=== PATIENT | male | born 1975 | race Caucasian/White ===

== ENCOUNTER 2016-11-05 05:23 | Emergency (ER) | payer MEDICAID ==
[2016-11-05] MEDS ORDERED: ONDANSETRON 4 MG/2 ML VIAL IVP STA (05:26)
[2016-11-05] MEDS ORDERED: SODIUM CHLORIDE 0.9% 1,000 ML IV ONE (05:26)
[2016-11-05] MEDS ORDERED: KETOROLAC 60 MG/2 ML VIAL IVP STA (05:26)
[2016-11-05] MEDS ORDERED: KETOROLAC 15 MG/ML VIAL ONE (05:40)
[2016-11-05] MEDS ORDERED: SODIUM CHLORIDE FLUSH 0.9% 10 ML SYRINGE IVP ONE (05:40)
[2016-11-05] MEDS ORDERED: ONDANSETRON 4 MG/2 ML VIAL ONE (05:40)
--- NOTE | 2016-11-05 05:59 | ED Physician Documentation ---
PD HPI BACK PAIN - Stated complaint Stated Complaint: BACK PAIN - Chief complaint Chief Complaint: Abd Pain - History of Present Illness Timing - onset: How many hours ago (1), Yesterday Timing - details: Abrupt onset, Waxing and waning Location: Mid, Left Quality: Pain, Aching Associated symptoms: No: Fever, Weakness, Hematuria Contributing factors: No: Anticoagulated Similar symptoms before: Has not had sx before Recently seen: Not recently seen - Additional information Additional information: Patient is a 40 year old male with no significant past medical history who is presenting to the emergency department for left flank pain. patient states that it woke him up from sleep and it radiates down to his left groin. The pain has caused nausea and vomiting as well. Review of Systems Constitutional: denies: Fever, Chills Eyes: denies: Decreased vision, Photophobia Ears: denies: Ear pain, Drainage/discharge Nose: denies: Congestion Throat: denies: Dental pain / toothache, Sore throat Cardiac: denies: Chest pain / pressure Respiratory: denies: Dyspnea, Cough GI: reports: Nausea, Vomiting : denies: Dysuria, Frequency, Hematuria Skin: denies: Rash, Lesions Musculoskeletal: reports: Back pain. denies: Extremity pain Neurologic: denies: Generalized weakness, Focal weakness, Numbness Immunocompromised: denies: Immunocompromised PD PAST MEDICAL HISTORY - Past Medical History Past Medical History: No Cardiovascular: None Respiratory: None Neuro: None Endocrine/Autoimmune: None GI: None : None HEENT: None Psych: None Musculoskeletal: None Derm: None - Past Surgical History Past Surgical History: No - Present Medications Home Medications: Ambulatory Orders Medication Instructions Recorded Confirmed Diclofenac Sodium 50 mg PO TID #20 tablet. 11/05/16 Ondansetron Odt [Zofran] 4 mg TL Q6H PRN #14 tablet 11/05/16 Tamsulosin HCl [Flomax] 0.4 mg PO DAILY #10 cap.er.24h 11/05/16 - Allergies Allergies/Adverse Reactions: Allergies Allergy/AdvReac Type Severity Reaction Status Date / Time No Known Drug Allergies Allergy Verified 11/05/16 05:35 - Social History Does the pt smoke?: No Smoking Status: Never smoker Does the pt drink ETOH?: No Does the pt have substance abuse?: No - Immunizations Immunizations are current?: Yes - POLST Patient has POLST: No PD ED PE NORMAL - Vitals Vital signs reviewed: Yes - General General: Alert and oriented X 3 - HEENT HEENT: Atraumatic, PERRL - Neck Neck: Supple, no meningeal sign - Cardiac Cardiac: RRR, No murmur - Respiratory Respiratory: No respiratory distress - Abdomen Abdomen: Non tender, Non distended - Derm Derm: Normal color, Warm and dry, No rash - Extremities Extremities: No deformity, No tenderness to palpate, No edema, No calf tenderness / cord - Neuro Neuro: Alert and oriented X 3, No motor deficit, No sensory deficit, Normal speech - Psych Psych: Normal mood PD ED PE EXPANDED - General General: Alert, In Pain - HEENT HEENT: Dry mucous membranes - Back Back: CVA TTP left Results - Vitals Vitals: Vital Signs - 24 hr 11/05/16 11/05/16 11/05/16 05:27 05:47 06:49 Temperature 36.1 C L 36.5 C Heart Rate 80 76 Respiratory 24 20 15 Rate Blood Pressure 139/93 H 121/74 O2 Saturation 99 99 Oxygen O2 Source Room air - Labs Labs: Laboratory Tests 11/05/16 06:40 Urine Color YELLOW Urine Clarity CLEAR Urine pH 6.0 Ur Specific [place] 1.020 Urine Protein NEGATIVE Urine Glucose (UA) NEGATIVE Urine Ketones TRACE Urine Occult Blood LARGE H Urine Nitrite NEGATIVE Urine Bilirubin NEGATIVE Urine Urobilinogen 0.2 (NORMAL) Ur Leukocyte Esterase NEGATIVE Urine RBC TNTC H Urine WBC 0-3 Ur Squamous Epith Cells NONE SEEN Urine Bacteria None Seen Urine Mucus Few Strands Ur Microscopic Review INDICATED Urine Culture Comments NOT INDICATED PD MEDICAL DECISION MAKING - ED course Complexity details: reviewed old records, reviewed results, re-evaluated patient , considered differential, d/w patient, d/w family ED course: Patient was seen and examined at bedside. IV access was gained and patient was treated with toradol, zofran and IV fluids. Patient's pain improved from a 10 to a 5 which is patient's baseline. Urine was collected and imaging was ordered. When patient returned from imaging results were reviewed. there was no sign of hydro or infection and the stone was under 5mm. Patient required no further work up at this time and was stable for discharge with outpatient follow up. Departure - Departure Disposition: 01 Home, Self Care Clinical Impression: Nephrolithiasis Condition: Good Instructions: ED Stone Renal W Colic Follow-Up: [facility] [Provider Group] - Within 3 Days Prescriptions: Diclofenac Sodium 50 mg PO TID #20 tablet. Ondansetron Odt [Zofran] 4 mg TL Q6H PRN #14 tablet PRN Reason: Nausea / Vomiting Tamsulosin HCl [Flomax] 0.4 mg PO DAILY #10 cap.er.24h Comments: Your symptoms today are being caused by a kidney stone. It is less than 5 mm and should pass on its own. You should stay well hydrated and take the flomax daily. You can take the diclofanac, ibuprofen or tylenol for pain. If you develop fevers, chills or worsening symptoms you may return to the emergency department for further evaluation and care.
[2016-11-05 06:49] VITALS: BP 121/74
[2016-11-05 06:50] LABS: BILIRUBIN,URINE NEGATIVE (NEGATIVE)
[2016-11-05 06:54] LABS: UA w/ MICROSCOPIC CHARGE YES
--- NOTE | 2016-11-05 06:54 | CT Preliminary Report ---
Exam: CT Abdomen/Pelvis W/O IMPRESSION: 1. There is a 4.5 mm left proximal ureteral stone, just distal to the UPJ. No evident hydronephrosis as a result. 2. No intrarenal stones on the left. There are 2 right mid and upper kidney punctate intrarenal stone s. No right-sided hydronephrosis. 3. No bowel obstruction. Appendix could not be identified with certainty. No secondary evidence of ap pendicitis. [facility] SITE ID: [id number]
[2016-11-05 06:56] LABS: UR CULTURE IF IND NOT INDICATED; WBC,URINE 0-3 /HPF (0-3)
--- NOTE | 2016-11-05 06:57 | CT Report ---
EXAM: CT ABDOMEN AND PELVIS (CT KUB) EXAM DATE: 11/05/2016 06:32 AM. CLINICAL HISTORY: Left flank pain COMPARISONS: None. TECHNIQUE: Routine axial helical CT imaging was performed through the abdomen and pelvis without IV c ontrast. Reconstructions: Coronal and sagittal. In accordance with CT protocol optimization, one or more of the following dose reduction techniques w ere utilized for this exam: automated exposure control, adjustment of mA and/or KV based on patient s ize, or use of iterative reconstructive technique. FINDINGS: Right Kidney/Ureter: There are 2 punctate stones within the right mid and upper kidney. No hydronephr osis or hydroureter. No definite renal mass within the confines of a non-contrast exam. Left Kidney/Ureter: No hydronephrosis. No intrarenal stones. There is a 4.5 mm stone within the left proximal ureter, at the UPJ. No definite renal mass within the confines of a non-contrast exam. Abdominal Solid Organs: Abdominal parenchymal organs are without significant abnormality within the c onfines of a noncontrast exam. Bowel: No evidence of bowel obstruction. Appendix: Appendix could not be identified with certainty. No secondary evidence of appendicitis. Lymph Nodes: No definite pathologic lymphadenopathy. Fluid: No significant ascites. Vasculature: Normal caliber aorta. Pelvis: No bladder stones. Visualized pelvic organs are without significant abnormality within the co nfines of a noncontrast exam. Bones: No definite suspicious bony lesions demonstrated. Lower Chest: No significant lung base consolidation or effusion. IMPRESSION: 1. There is a 4.5 mm left proximal ureteral stone, just distal to the UPJ. No evident hydronephrosis as a result. 2. No intrarenal stones on the left. There are 2 right mid and upper kidney punctate intrarenal stone s. No right-sided hydronephrosis. 3. No bowel obstruction. Appendix could not be identified with certainty. No secondary evidence of ap pendicitis. [facility] Referring Provider Line: [phone] SITE ID: [id number]
[2016-11-05] MEDS ORDERED: ACETAMINOPHEN 500 MG TABLET PO STA (07:11)
[2016-11-05] MEDS ORDERED: ACETAMINOPHEN 500 MG TABLET PO ONE (07:18)
== END 2016-11-05 07:20 | disposition home or self-care (01) ==
LOC: ED 05:23
DX: N20.0 Calculus of kidney (principal)
CPT/HCPCS: 74176; 81001; 96361; 96374; 96375; 99283; 99284; A9270; 81003; 87086

== ENCOUNTER 2016-12-06 08:28 | Emergency (ER) | payer SELFPAY ==
[2016-12-06] MEDS ORDERED: KETOROLAC 30 MG/ML VIAL ONE (08:56)
[2016-12-06] MEDS ORDERED: ONDANSETRON 4 MG/2 ML VIAL ONE (08:56)
[2016-12-06] MEDS ORDERED: KETOROLAC 30 MG/ML VIAL IVP STA (09:01)
[2016-12-06] MEDS ORDERED: ONDANSETRON 4 MG/2 ML VIAL IVP STA (09:03)
[2016-12-06] MEDS ORDERED: SODIUM CHLORIDE 0.9% 1,000 ML IV ONE (09:04)
[2016-12-06 09:12] LABS: BASOPHILS % (AUTO) 0.8 %; EOSINOPHILS # (AUTO) 0.1 10^3/uL (0.0-0.7); EOSINOPHILS % (AUTO) 1.4 %; HCT - HEMATOCRIT 45.1 % (42.0-52.0); HGB - HEMOGLOBIN 15.6 g/dL (14.0-18.0); LYMPHOCYTES # (AUTO) 1.7 10^3/uL (1.5-3.5); LYMPHOCYTES % (AUTO) 31.5 %; MEAN CORPUSCULAR HEMOGLOBIN 30.9 pg (27.0-31.0); MEAN CORPUSCULAR HGB CONC 34.6 g/dL (32.0-36.0); MEAN CORPUSCULAR VOLUME 89.2 fL (80.0-94.0); MEAN PLATELET VOLUME 8.2 fL (7.4-11.4); MONOCYTES # (AUTO) 0.4 10^3/uL (0.0-1.0); MONOCYTES % (AUTO) 7.5 %; NEUTROPHILS # (AUTO) 3.1 10^3/uL (1.5-6.6); NEUTROPHILS % (AUTO) 58.8 %; RED BLOOD COUNT 5.06 10^6/uL (4.70-6.10); RED CELL DISTRIBUTION WIDTH 12.3 % (12.0-15.0); UNCORRECTED WHITE BLOOD COUNT 5.3 x10^3/uL; WHITE BLOOD COUNT 5.3 x10^3/uL (4.8-10.8)
[2016-12-06 09:22] LABS: ALBUMIN/GLOBULIN RATIO 1.7 (1.0-2.2); BILIRUBIN,TOTAL 1.2 mg/dL (0.2-1.0); CALCIUM 9.9 mg/dL (8.5-10.3); CREATININE 1.1 mg/dL (0.6-1.2); POTASSIUM 4.2 mmol/L (3.5-5.0); TOTAL PROTEIN 7.8 g/dL (6.7-8.2)
--- NOTE | 2016-12-06 10:06 | XRAY Preliminary Report ---
Exam: XR ABDOMEN 1 VIEW IMPRESSION: Normal 1-view abdomen x-ray. [facility] SITE ID: [id number]
--- NOTE | 2016-12-06 10:09 | XRAY Report ---
EXAM: ABDOMEN RADIOGRAPHY EXAM DATE: 12/06/2016 09:54 AM. CLINICAL HISTORY: Rt. flank pain; rt-sided stone dxd recently. COMPARISON: CT KUB 11/05/2016. TECHNIQUE: 1 view. FINDINGS: Bowel Gas Pattern: Within normal limits. No dilated loops. Other: No urinary tract calculi apparent by plain radiography. IMPRESSION: Normal 1-view abdomen x-ray. [facility] Referring Provider Line: [phone] SITE ID: [id number]
--- NOTE | 2016-12-06 10:11 | ED Physician Documentation ---
PD HPI ABD PAIN - Stated complaint Stated Complaint: SIDE PX - Chief complaint Chief Complaint: Abd Pain - History obtained from History obtained from: Patient - History of Present Illness Timing - onset: How many minutes ago (30) Timing - details: Abrupt onset Quality: Pain Location: Other (Right flank.) Associated symptoms: Nausea, Vomiting. No: Fever Similar symptoms before: Diagnosis (History of kidney stones, most recently diagnosed with left ureteral stone one month ago.) - Additional information Additional information: The patient is a 40-year-old male with history of kidney stones, who presents with sudden onset of right flank pain that started one half hour prior to arrival. He reports associated nausea and vomiting. He denies fever or dysuria. He was seen here one month ago with left flank pain, and was diagnosed with a 4.5 mm left ureteral stone at that time based on CT findings. He was noted to have 2 nonobstructing stones in the right renal pelvis at that time. Review of Systems Constitutional: denies: Fever Nose: denies: Congestion Cardiac: denies: Chest pain / pressure Respiratory: denies: Dyspnea, Cough GI: reports: Nausea, Vomiting : denies: Dysuria, Hematuria Skin: denies: Rash Musculoskeletal: reports: Back pain (right flank) Neurologic: denies: Headache PD PAST MEDICAL HISTORY - Past Medical History Past Medical History: Yes Cardiovascular: None Respiratory: None Neuro: None, Other Endocrine/Autoimmune: None GI: None : None, Kidney stones HEENT: None Psych: None Musculoskeletal: Chronic back pain Derm: None - Past Surgical History Past Surgical History: No - Present Medications Home Medications: Ambulatory Orders Medication Instructions Recorded Confirmed Tamsulosin HCl [Flomax] 0.4 mg PO DAILY #10 cap.er.24h 11/05/16 12/06/16 Tamsulosin [Flomax] 0.4 mg PO DAILY #10 capsule 12/06/16 - Allergies Allergies/Adverse Reactions: Allergies Allergy/AdvReac Type Severity Reaction Status Date / Time No Known Drug Allergies Allergy Verified 12/06/16 11:42 - Social History Does the pt smoke?: No Smoking Status: Never smoker Does the pt drink ETOH?: No Does the pt have substance abuse?: No - Immunizations Immunizations are current?: Yes - POLST Patient has POLST: No PD ED PE NORMAL - Vitals Vital signs reviewed: Yes (normal) - General General: Alert and oriented X 3, Well developed/nourished - HEENT HEENT: Atraumatic, Moist mucous membranes - Neck Neck: Supple, no meningeal sign, No adenopathy - Cardiac Cardiac: RRR, No murmur - Respiratory Respiratory: No respiratory distress, Clear bilaterally - Abdomen Abdomen: Soft, No organomegaly, Other (Right sided tenderness, without rebound or guarding.) - Back Back: Other (Exquisite right CVA tenderness.) - Derm Derm: No rash - Extremities Extremities: No edema, No calf tenderness / cord - Neuro Neuro: Alert and oriented X 3, No motor deficit, Normal speech Results - Vitals Vitals: Oxygen O2 Source Room air - Labs Labs: Microbiology 12/06/16 09:55 Urine Culture - Final Urine,Clean Catch No growth Laboratory Tests 12/06/16 12/06/16 12/06/16 08:45 08:45 09:55 WBC 5.3 RBC 5.06 Hgb 15.6 Hct 45.1 MCV 89.2 MCH 30.9 MCHC 34.6 RDW 12.3 Plt Count 278 MPV 8.2 Neut # 3.1 Lymph # 1.7 Cooper # 0.4 Eos # 0.1 Baso # 0.0 Absolute Nucleated RBC 0.00 Nucleated RBC % 0.0 Sodium 138 Potassium 4.2 Chloride 103 Carbon Dioxide 25 Anion Gap 10.0 BUN 14 Creatinine 1.1 Estimated GFR (MDRD) 75 L Glucose 115 H Calcium 9.9 Total Bilirubin 1.2 H AST 18 ALT 16 Alkaline Phosphatase 45 Total Protein 7.8 Albumin 4.9 Globulin 2.9 Albumin/Globulin Ratio 1.7 Lipase 25 Urine Color YELLOW Urine Clarity HAZY Urine pH 7.0 Ur Specific [place] 1.020 Urine Protein TRACE Urine Glucose (UA) NEGATIVE Urine Ketones NEGATIVE Urine Occult Blood LARGE H Urine Nitrite NEGATIVE Urine Bilirubin NEGATIVE Urine Urobilinogen 0.2 (NORMAL) Ur Leukocyte Esterase NEGATIVE Urine RBC 11-25 H Urine WBC 0-3 Ur Squamous Epith Cells NONE SEEN Urine Bacteria Moderate H Ur Microscopic Review INDICATED Urine Culture Comments INDICATED - Rads (name of study) KUB Radiology: Prelim report reviewed, EMP read contemporaneously, See rad report ( Normal 1 view abdomen.) PD MEDICAL DECISION MAKING - ED course Complexity details: reviewed old records, reviewed results, re-evaluated patient , considered differential, d/w patient, d/w family ED course: The patient's presentation is most consistent with right renal colic, consistent with ureteral stone. Urinalysis reveals microscopic hematuria. A 1 view abdominal x-ray was nonrevealing. This study was performed, rather than CT scan, because of the patient's recent radiation from CT scan one month ago. His presentation does not suggest pyelonephritis. Treatment in the emergency department included administration of normal saline 1 L IV, ketorolac 30 mg IV, and ondansetron 4 mg IV. The patient declined narcotic medication. His symptoms did improve with the above treatment. He is being discharged with prescription for Flomax. I discussed with him and his the expected course of illness, symptomatic treatment and outpatient follow -up, as well as potentially worrisome signs or symptoms that should prompt reevaluation in the emergency department. Departure - Departure Disposition: 01 Home, Self Care Clinical Impression: Renal colic on right side Condition: Stable Instructions: ED Stone Renal W Colic Follow-Up: Mabel Dodge DO [Primary Care Provider] - Prescriptions: Tamsulosin [Flomax] 0.4 mg PO DAILY #10 capsule Comments: Drink plenty of fluids. Take ibuprofen, up to 800 mg 3 times daily. Take Flomax daily as prescribed. Follow up with your primary physician within 1 week. Call to schedule appointment. Return to the emergency department if you develop increasing pain, persistent vomiting, fever, or otherwise worsening symptoms. Discharge Date/Time: 12/06/16 11:25
[2016-12-06 10:15] LABS: BILIRUBIN,URINE NEGATIVE (NEGATIVE)
[2016-12-06 10:19] LABS: UA w/ MICROSCOPIC CHARGE YES
[2016-12-06 10:29] LABS: WBC,URINE 0-3 /HPF (0-3)
[2016-12-06 10:30] LABS: UR CULTURE IF IND INDICATED
[2016-12-06 11:47] VITALS: BP 110/71
== END 2016-12-06 11:25 | disposition home or self-care (01) ==
LOC: ED 08:28
DX: N23 Unspecified renal colic (principal); Z87.442 Personal history of urinary calculi; R31.29 Other microscopic hematuria
CPT/HCPCS: 36415; 74000; 80053; 81001; 81003; 83690; 85025; 87086; 96361; 96374; 96375; 99284

== ENCOUNTER 2016-12-18 09:23 | Emergency (ER) | payer SELFPAY ==
[2016-12-18] MEDS ORDERED: KETOROLAC 60 MG/2 ML VIAL IVP STA (09:48)
[2016-12-18] MEDS ORDERED: ONDANSETRON 4 MG/2 ML VIAL IVP STA (09:48)
[2016-12-18] MEDS ORDERED: ACETAMINOPHEN 1,000 MG/100 ML 100 ML IV STA (09:48)
--- NOTE | 2016-12-18 09:49 | ED Physician Documentation ---
PD HPI ABD PAIN - Stated complaint Stated Complaint: LT BACK PX - Chief complaint Chief Complaint: Abd Pain - History obtained from History obtained from: Patient - History of Present Illness Timing - onset: Today Timing - duration: Hours (1-2) Timing - details: Abrupt onset, Still present Quality: Aching, Pain Location: LLQ Radiation: Left flank Improved by: No: Laying still, Position Worsened by: No: Moving, Position, Palpation Associated symptoms: Nausea. No: Diarrhea, Constipation, Dysuria, Hematuria Similar symptoms before: Diagnosis (kidney stone end of october, same side.) Review of Systems Constitutional: denies: Fever, Chills Cardiac: denies: Chest pain / pressure Respiratory: denies: Dyspnea, Cough GI: denies: Vomiting, Constipation, Diarrhea : denies: Dysuria, Frequency, Hematuria PD PAST MEDICAL HISTORY - Past Medical History Past Medical History: Yes Cardiovascular: None Respiratory: None Neuro: None, Other Endocrine/Autoimmune: None GI: None : Kidney stones HEENT: None Psych: None Musculoskeletal: Chronic back pain Derm: None - Past Surgical History Past Surgical History: No - Present Medications Home Medications: Ambulatory Orders Medication Instructions Recorded Confirmed Tamsulosin [Flomax] 0.4 mg PO DAILY #10 capsule 12/06/16 12/18/16 Cbd Oil ORAL DAILY 12/18/16 Naproxen [Naprosyn] 500 mg PO BID PRN #20 tablet 12/18/16 Ondansetron Odt [Zofran] 4 mg TL Q6H PRN #15 tablet 12/18/16 - Allergies Allergies/Adverse Reactions: Allergies Allergy/AdvReac Type Severity Reaction Status Date / Time No Known Drug Allergies Allergy Verified 12/18/16 09:40 - Social History Does the pt smoke?: No Smoking Status: Never smoker Does the pt drink ETOH?: No Does the pt have substance abuse?: No - Immunizations Immunizations are current?: Yes - POLST Patient has POLST: No PD ED PE NORMAL - Vitals Vital signs reviewed: Yes - General General: Alert and oriented X 3, Well developed/nourished, Other (marked pain and writhing. ) - Cardiac Cardiac: RRR, No murmur - Respiratory Respiratory: Clear bilaterally - Abdomen Abdomen: Soft, Non tender - Back Back: No spinal TTP, Other (left CVA tender) - Derm Derm: Normal color, Warm and dry - Extremities Extremities: No tenderness to palpate - Neuro Neuro: Alert and oriented X 3, No motor deficit, Normal speech - Psych Psych: Normal mood, Normal affect Results - Vitals Vitals: Oxygen O2 Source Room air - Labs Labs: Laboratory Tests 12/18/16 12/18/16 12/18/16 09:44 09:44 10:58 WBC 8.9 RBC 5.00 Hgb 15.4 Hct 44.6 MCV 89.3 MCH 30.9 MCHC 34.6 RDW 12.2 Plt Count 297 MPV 7.8 Neut # 6.5 Lymph # 1.9 [place] # 0.5 Eos # 0.1 Baso # 0.1 Absolute Nucleated RBC 0.00 Nucleated RBC % 0.1 Sodium 136 Potassium 3.5 Chloride 103 Carbon Dioxide 22 Anion Gap 11.0 BUN 16 Creatinine 1.0 Estimated GFR (MDRD) 83 L Glucose 95 Calcium 9.7 Total Bilirubin 1.7 H AST 21 ALT 21 Alkaline Phosphatase 49 Total Protein 7.7 Albumin 4.8 Globulin 2.9 Albumin/Globulin Ratio 1.7 Lipase 20 L Urine Color YELLOW Urine Clarity CLEAR Urine pH 7.0 Ur Specific [place] <=1.005 Urine Protein NEGATIVE Urine Glucose (UA) NEGATIVE Urine Ketones NEGATIVE Urine Occult Blood LARGE H Urine Nitrite NEGATIVE Urine Bilirubin NEGATIVE Urine Urobilinogen 0.2 (NORMAL) Ur Leukocyte Esterase NEGATIVE Urine RBC 0-5 Urine WBC 0-3 Ur Squamous Epith Cells NONE SEEN Urine Bacteria None Seen Ur Microscopic Review INDICATED Urine Culture Comments NOT INDICATED - Rads (name of study) KUB CT Radiology: Prelim report reviewed (4 mm stone left ureter, just short distance further than it was ) PD MEDICAL DECISION MAKING - ED course Complexity details: re-evaluated patient (improved pain. He adamantly does not want narcotics. Better with nonnarcotic meds. ), considered differential ( sympotoms c/w renal colic. Had similar end of Oct, and has had mild intermittent pains. Consider is still same stone, and got CT showing same stone migrated just a little bit. Will refer to Urology for possible intervention. ), d/w patient Departure - Departure Disposition: 01 Home, Self Care Clinical Impression: Nephrolithiasis, Renal colic Condition: Stable Record reviewed to determine appropriate education?: Yes Instructions: ED Stone Renal W Colic Follow-Up: Mabel Dodge DO [Primary Care Provider] - [facility] [Provider Group] Prescriptions: Naproxen [Naprosyn] 500 mg PO BID PRN #20 tablet PRN Reason: Pain Ondansetron Odt [Zofran] 4 mg TL Q6H PRN #15 tablet PRN Reason: Nausea / Vomiting Comments: The stone has only moved a little bit over the month and a half. I would suggest following up with [facility] in [place] regarding possible and interventional procedures to remove it. Use naproxen or ibuprofen twice daily regularly. Add Zofran if needed for nausea. Add Tylenol if needed for pains. Return if worsening pain again. Discharge Date/Time: 12/18/16 11:33
[2016-12-18] MEDS ORDERED: KETOROLAC 60 MG/2 ML VIAL ONE (09:53)
[2016-12-18] MEDS ORDERED: ONDANSETRON 4 MG/2 ML VIAL ONE (09:53)
[2016-12-18 09:54] LABS: BASOPHILS # (AUTO) 0.1 10^3/uL (0.0-0.1); BASOPHILS % (AUTO) 0.7 %; EOSINOPHILS # (AUTO) 0.1 10^3/uL (0.0-0.7); EOSINOPHILS % (AUTO) 0.8 %; HCT - HEMATOCRIT 44.6 % (42.0-52.0); HGB - HEMOGLOBIN 15.4 g/dL (14.0-18.0); LYMPHOCYTES # (AUTO) 1.9 10^3/uL (1.5-3.5); LYMPHOCYTES % (AUTO) 20.9 %; MEAN CORPUSCULAR HEMOGLOBIN 30.9 pg (27.0-31.0); MEAN CORPUSCULAR HGB CONC 34.6 g/dL (32.0-36.0); MEAN CORPUSCULAR VOLUME 89.3 fL (80.0-94.0); MEAN PLATELET VOLUME 7.8 fL (7.4-11.4); MONOCYTES # (AUTO) 0.5 10^3/uL (0.0-1.0); MONOCYTES % (AUTO) 5.1 %; NEUTROPHILS # (AUTO) 6.5 10^3/uL (1.5-6.6); NEUTROPHILS % (AUTO) 72.5 %; NUCLEATED RED BLOOD CELLS AUTO 0.1 /100WBC; RED CELL DISTRIBUTION WIDTH 12.2 % (12.0-15.0); UNCORRECTED WHITE BLOOD COUNT 8.9 x10^3/uL; WHITE BLOOD COUNT 8.9 x10^3/uL (4.8-10.8)
[2016-12-18] MEDS ORDERED: ACETAMINOPHEN 1,000 MG/100 ML 100 ML IV ONE (09:57)
[2016-12-18 10:07] LABS: ALBUMIN/GLOBULIN RATIO 1.7 (1.0-2.2); BILIRUBIN,TOTAL 1.7 mg/dL (0.2-1.0); CALCIUM 9.7 mg/dL (8.5-10.3); POTASSIUM 3.5 mmol/L (3.5-5.0); TOTAL PROTEIN 7.7 g/dL (6.7-8.2)
--- NOTE | 2016-12-18 10:49 | CT Report ---
EXAM: CT ABDOMEN AND PELVIS (CT KUB) EXAM DATE: 12/18/2016 10:33 AM. CLINICAL HISTORY: Left flank/abd pain today. COMPARISONS: CT abdomen and pelvis 11/05/2016. TECHNIQUE: Routine axial helical CT imaging was performed through the abdomen and pelvis without IV c ontrast. Reconstructions: Coronal and sagittal. In accordance with CT protocol optimization, one or more of the following dose reduction techniques w ere utilized for this exam: automated exposure control, adjustment of mA and/or KV based on patient s ize, or use of iterative reconstructive technique. FINDINGS: Lung Bases: Solid pulmonary nodule in the lateral segment right middle lobe measures 4 mm. Solid pulm onary nodule in the anterior basilar segment right lower lobe measures 4 mm, unchanged. Right Kidney/Ureter: No stones, hydronephrosis, or hydroureter. No perinephric fat stranding. Left Kidney/Ureter: Nonobstructing ureterolithiasis in the proximal left ureter, series 3, axial imag e 43, measures 4 x 3 x 5 mm, located approximately 18-19 cm above the ureterovesicular junction, appr oximately 2-3 mm lower in the ureter than previous study with asymmetric proximal periureteral edema and slight thickening of the ureteral wall. Other Solid Organs: Incidental splenule. Gallbladder/Bile Ducts: Unremarkable. Peritoneal Cavity: No free fluid, free air or adi adenopathy. Bowel is grossly unremarkable. Pelvic Organs: No bladder stones or wall thickening. Noncontrast images of the visualized pelvic orga ns are unremarkable. Vasculature: Unremarkable. Other: Motion artifact. IMPRESSION: 1. Nonobstructing ureterolithiasis in the proximal left ureter is slightly lower than previous study however remains well above the ureterovesicular junction with associated inflammation around the prox imal ureter 2. Small pulmonary nodules at the lung bases. Recommend follow-up of the described nodule(s) according to the following guidelines: Fleischner Society Recommendations 2017 MacMahon et al. Radiology 2017 Solid Nodules-Low Risk Patients: <6 mm (single or multiple) - No routine follow-up* 6-8 mm (single) -CT 6-12 at months, then consider CT at 18-24 months 6-8mm (multiple) -CT 3-6 at mo, then consider at CT 18-24 months >8 mm (single) -Consider CT, PET/CT, or tissue sampling at 3 months >8 mm (multiple) -CT 3-6 at mo, then consider CT at 18-24 months Solid Nodules-High Risk Patients: <6 mm (single or multiple) -Optional CT at 12 months* 6-8 mm (single) -CT at 6-12 months, then CT at 18-24 months 6-8mm (multiple) -CT at 3-6 months, then CT at 18-24 months >8 mm (single) -Consider CT, PET/CT, or tissue sampling at 3 months >8 mm (multiple) -CT at 3-6 months, then at 18-24 months *Nodules < 6mm do not require routine follow-up, but suspicious nodule morphology, upper lobe locatio n, or both may warrant 12 month follow-up Subsolid nodules: <6 mm (single, GG or part solid) -No routine follow-up >=6 mm (single GG) -CT at 6-12 months to confirm, then CT q2 years until 5 years >=6 mm (single part solid) -CT at 3-6 months to confirm, if unchanged and solid <6mm, annual CT for 5 years <6 mm (multiple GG or part solid) -CT at 3-6 months. If stable, consider CT at 2 and 4 years >=6 mm (multiple GG or part solid) -CT at 3-6 months. Subsequent management based on most suspicious nodule(s). Consider follow-up at 2 and 4 years for certain suspicious nodules <6mm. If solid component develo ps or growth, consider resection. [facility] Referring Provider Line: [phone] SITE ID: [id number]
[2016-12-18 11:03] LABS: BILIRUBIN,URINE NEGATIVE (NEGATIVE)
[2016-12-18 11:12] LABS: UA w/ MICROSCOPIC CHARGE YES
[2016-12-18 11:27] LABS: UR CULTURE IF IND NOT INDICATED; WBC,URINE 0-3 /HPF (0-3)
[2016-12-18 11:33] VITALS: BP 110/67
== END 2016-12-18 11:33 | disposition home or self-care (01) ==
LOC: ED 09:23
DX: N20.0 Calculus of kidney (principal)
CPT/HCPCS: 36415; 74176; 80053; 81001; 83690; 85025; 96365; 96375; 99283; 99284; J0131; 81003; 87086

== ENCOUNTER 2017-02-11 10:05 | Emergency (ER) | payer SELFPAY ==
[2017-02-11 10:43] LABS: BASOPHILS % (AUTO) 0.6 %; EOSINOPHILS # (AUTO) 0.1 10^3/uL (0.0-0.7); EOSINOPHILS % (AUTO) 1.4 %; HGB - HEMOGLOBIN 16.6 g/dL (14.0-18.0); LYMPHOCYTES # (AUTO) 1.5 10^3/uL (1.5-3.5); LYMPHOCYTES % (AUTO) 26.8 %; MEAN CORPUSCULAR HEMOGLOBIN 30.8 pg (27.0-31.0); MEAN CORPUSCULAR HGB CONC 34.8 g/dL (32.0-36.0); MEAN CORPUSCULAR VOLUME 88.4 fL (80.0-94.0); MEAN PLATELET VOLUME 7.9 fL (7.4-11.4); MONOCYTES # (AUTO) 0.5 10^3/uL (0.0-1.0); MONOCYTES % (AUTO) 8.3 %; NEUTROPHILS # (AUTO) 3.6 10^3/uL (1.5-6.6); NEUTROPHILS % (AUTO) 62.9 %; PLT - PLATELET COUNT 302 10^3/uL (130-450); RED BLOOD COUNT 5.41 10^6/uL (4.70-6.10); RED CELL DISTRIBUTION WIDTH 11.9 % (12.0-15.0); WHITE BLOOD COUNT 5.7 x10^3/uL (4.8-10.8)
[2017-02-11 10:57] LABS: ALBUMIN 5.1 g/dL (3.2-5.5); ALBUMIN/GLOBULIN RATIO 1.5 (1.0-2.2); BILIRUBIN,TOTAL 1.6 mg/dL (0.2-1.0); CALCIUM 10.4 mg/dL (8.5-10.3); CREATININE 1.2 mg/dL (0.6-1.2); TOTAL PROTEIN 8.4 g/dL (6.7-8.2)
[2017-02-11] MEDS ORDERED: KETOROLAC 60 MG/2 ML VIAL IVP STA (10:58)
[2017-02-11] MEDS ORDERED: KETOROLAC 30 MG/ML VIAL ONE (11:06)
[2017-02-11 11:46] LABS: BILIRUBIN,URINE NEGATIVE (NEGATIVE); GLUCOSE, URINE (UA) NEGATIVE (NEGATIVE); KETONES,URINE (UA) NEGATIVE (NEGATIVE); LEUKOCYTE ESTERASE, URINE NEGATIVE (NEGATIVE); NITRITE,URINE NEGATIVE (NEGATIVE); OCCULT BLOOD,URINE LARGE (NEGATIVE); PROTEIN,URINE TRACE mg/dL (NEGATIVE); UROBILINOGEN,URINE 0.2 (NORMAL) E.U./dL (NORMAL)
[2017-02-11 11:53] LABS: CLARITY,URINE CLOUDY (CLEAR)
[2017-02-11 12:05] LABS: BACTERIA,URINE Few /HPF (None Seen); RBC,URINE TNTC /HPF (0-5); SQUAMOUS EPITHELIAL CELL,UR NONE SEEN (<= Few)
[2017-02-11] MEDS ORDERED: PANTOPRAZOLE 40 MG VIAL IVP STA (12:39)
--- NOTE | 2017-02-11 12:43 | ED Physician Documentation ---
PD HPI ABD PAIN - Stated complaint Stated Complaint: MALE /SIDE PX - Chief complaint Chief Complaint: Abd Pain - History obtained from History obtained from: Patient - History of Present Illness Timing - onset: Other (He has a history of renal colic, had a CT in December showing of 4 x 5 mm ureteral stone in the left. It started bothering him again about 72 hours ago with left flank pain radiating to left lower quadrant and intermittent hematuria and nausea. His pain is much better on my evaluation after Toradol.) Review of Systems Constitutional: denies: Fever, Chills Nose: denies: Rhinorrhea / runny nose, Congestion GI: reports: Abdominal Pain, Nausea. denies: Vomiting, Constipation, Diarrhea : reports: Frequency. denies: Dysuria PD PAST MEDICAL HISTORY - Past Medical History Past Medical History: Yes Cardiovascular: None Respiratory: None Neuro: None, Other Endocrine/Autoimmune: None GI: None : Kidney stones HEENT: None Psych: None Musculoskeletal: Chronic back pain Derm: None - Past Surgical History Past Surgical History: No - Present Medications Home Medications: Ambulatory Orders Medication Instructions Recorded Confirmed Tamsulosin [Flomax] 0.4 mg PO DAILY #10 capsule 12/06/16 12/18/16 Cbd Oil ORAL DAILY 12/18/16 Naproxen [Naprosyn] 500 mg PO BID PRN #20 tablet 12/18/16 Ondansetron Odt [Zofran] 4 mg TL Q6H PRN #15 tablet 12/18/16 Omeprazole [PriLOSEC] 20 mg PO DAILY #14 capsule 02/11/17 Tamsulosin [Flomax] 0.4 mg PO DAILY #14 capsule 02/11/17 - Allergies Allergies/Adverse Reactions: Allergies Allergy/AdvReac Type Severity Reaction Status Date / Time No Known Drug Allergies Allergy Verified 02/11/17 10:12 - Social History Does the pt smoke?: No Smoking Status: Never smoker Does the pt drink ETOH?: No Does the pt have substance abuse?: No - Immunizations Immunizations are current?: Yes - POLST Patient has POLST: No PD ED PE NORMAL - Vitals Vital signs reviewed: Yes - General General: Alert and oriented X 3, No acute distress, Well developed/nourished - Abdomen Abdomen: Soft, Non tender - Back Back: No CVA TTP - Neuro Neuro: Alert and oriented X 3, Normal speech Results - Vitals Vitals: Vital Signs - 24 hr 02/11/17 10:10 Temperature 36.6 C Heart Rate 95 Respiratory 20 Rate Blood Pressure 126/76 O2 Saturation 98 Oxygen O2 Source Room air - Labs Labs: Laboratory Tests 02/11/17 02/11/17 02/11/17 10:35 10:35 11:15 WBC 5.7 RBC 5.41 Hgb 16.6 Hct 47.8 MCV 88.4 MCH 30.8 MCHC 34.8 RDW 11.9 L Plt Count 302 MPV 7.9 Neut # 3.6 Lymph # 1.5 [place] # 0.5 Eos # 0.1 Baso # 0.0 Absolute Nucleated RBC 0.00 Nucleated RBC % 0.0 Sodium 136 Potassium 4.0 Chloride 98 L Carbon Dioxide 24 Anion Gap 14.0 H BUN 17 Creatinine 1.2 Estimated GFR (MDRD) 67 L Glucose 83 Calcium 10.4 H Total Bilirubin 1.6 H AST 23 ALT 18 Alkaline Phosphatase 49 Total Protein 8.4 H Albumin 5.1 Globulin 3.3 Albumin/Globulin Ratio 1.5 Lipase 25 Urine Color DARK YELLOW Urine Clarity CLOUDY Urine pH 8.0 H Ur Specific [place] 1.015 Urine Protein TRACE Urine Glucose (UA) NEGATIVE Urine Ketones NEGATIVE Urine Occult Blood LARGE H Urine Nitrite NEGATIVE Urine Bilirubin NEGATIVE Urine Urobilinogen 0.2 (NORMAL) Ur Leukocyte Esterase NEGATIVE Urine RBC TNTC H Urine WBC 0-3 Ur Squamous Epith Cells NONE SEEN Urine Bacteria Few Ur Microscopic Review INDICATED Urine Culture Comments NOT INDICATED PD MEDICAL DECISION MAKING - ED course ED course: He declines narcotics. He is unable to pay for outpatient Toradol. I discussed with him the most NSAIDs are basically equivalent for pain control and he has been taking a lot of ibuprofen but is getting stomach upset from it so we will start a PPI and restart him on Flomax. Departure - Departure Disposition: 01 Home, Self Care Clinical Impression: Renal colic Condition: Good Record reviewed to determine appropriate education?: Yes Instructions: ED Stone Renal W Colic Prescriptions: Omeprazole [PriLOSEC] 20 mg PO DAILY #14 capsule Tamsulosin [Flomax] 0.4 mg PO DAILY #14 capsule Comments: As discussed, you ideally will follow up with urologist, call [phone] for an appointment in [place]. Return if worse.
[2017-02-11 12:59] VITALS: BP 128/79
== END 2017-02-11 12:58 | disposition home or self-care (01) ==
LOC: ED 10:05
DX: N23 Unspecified renal colic (principal)
CPT/HCPCS: 36415; 80053; 81001; 81003; 83690; 85025; 87086; 96374; 96375; 99283; 99284

== ENCOUNTER 2017-02-22 11:13 | Emergency (ER) | payer SELFPAY ==
[2017-02-22] MEDS ORDERED: KETOROLAC 30 MG/ML VIAL IVP STA (11:39)
[2017-02-22] MEDS ORDERED: ONDANSETRON 4 MG/2 ML VIAL IVP STA (11:39)
[2017-02-22 11:45] LABS: BASOPHILS # (AUTO) 0.3 10^3/uL (0.0-0.1); BASOPHILS % (AUTO) 3.6 %; EOSINOPHILS # (AUTO) 0.1 10^3/uL (0.0-0.7); EOSINOPHILS % (AUTO) 0.8 %; HGB - HEMOGLOBIN 15.5 g/dL (14.0-18.0); LYMPHOCYTES # (AUTO) 1.2 10^3/uL (1.5-3.5); LYMPHOCYTES % (AUTO) 15.4 %; MEAN CORPUSCULAR HGB CONC 33.5 g/dL (32.0-36.0); MEAN CORPUSCULAR VOLUME 92.6 fL (80.0-94.0); MEAN PLATELET VOLUME 8.3 fL (7.4-11.4); MONOCYTES # (AUTO) 0.6 10^3/uL (0.0-1.0); MONOCYTES % (AUTO) 8.5 %; NEUTROPHILS # (AUTO) 5.4 10^3/uL (1.5-6.6); NEUTROPHILS % (AUTO) 71.7 %; PLT - PLATELET COUNT 311 10^3/uL (130-450); RED CELL DISTRIBUTION WIDTH 12.3 % (12.0-15.0); WHITE BLOOD COUNT 7.5 x10^3/uL (4.8-10.8)
[2017-02-22] MEDS ORDERED: KETOROLAC 30 MG/ML VIAL ONE (11:46)
[2017-02-22] MEDS ORDERED: ONDANSETRON 4 MG/2 ML VIAL ONE (11:46)
[2017-02-22 12:06] LABS: ALBUMIN 4.8 g/dL (3.2-5.5); ALBUMIN/GLOBULIN RATIO 1.5 (1.0-2.2); BILIRUBIN,TOTAL 1.3 mg/dL (0.2-1.0); CALCIUM 9.5 mg/dL (8.5-10.3); CREATININE 1.3 mg/dL (0.6-1.2)
--- NOTE | 2017-02-22 13:04 | ED Physician Documentation ---
PD HPI ABD PAIN - Stated complaint Stated Complaint: KIDNEY PX - Chief complaint Chief Complaint: Abd Pain - History obtained from History obtained from: Patient, Family - History of Present Illness Timing - onset: How many months ago (2) Timing - duration: Days (3) Timing - details: Abrupt onset, Still present, Waxing and waning Quality: Sharp, Pain Location: LUQ Radiation: , Lower back, Left flank Improved by: Meds Worsened by: Other (nothing) Associated symptoms: Nausea Similar symptoms before: Diagnosis (kidney stone) Recently seen: Emergency Dept (Seen here 10 days ago with renal colic had improvement in his pain with use of Toradol.) - Additional information Additional information: 41-year-old male who began to have a kidney stone bother him back in December of this year has had intermittent symptoms and about 10 days ago his symptoms peaked he came to the emergency department and his symptoms abated with use of Toradol. Over the past several days he has had 3 episodes of severe pain he has been able to medicate them with CBD oil and today he is not able to get comfortable from the severe pain. He has returned to the emergency department. He has had imaging of his abdomen and pelvis twice previously 1 showing a slight movement of the stone and on his last CT stone was still at the upper end of the ureter. He has about a 4 x 5 mm stone. Review of Systems Constitutional: denies: Fever Eyes: denies: Decreased vision Ears: denies: Ear pain Nose: denies: Congestion Throat: denies: Sore throat Cardiac: denies: Chest pain / pressure, Palpitations Respiratory: denies: Dyspnea, Cough GI: reports: Abdominal Pain, Nausea, Vomiting : reports: Hematuria. denies: Dysuria, Frequency Skin: denies: Rash Musculoskeletal: reports: Back pain. denies: Neck pain Neurologic: denies: Generalized weakness, Focal weakness, Numbness PD PAST MEDICAL HISTORY - Past Medical History Past Medical History: Yes Cardiovascular: None Respiratory: None Neuro: None, Other Endocrine/Autoimmune: None GI: None : Kidney stones HEENT: None Psych: None Musculoskeletal: Chronic back pain Derm: None - Past Surgical History Past Surgical History: No - Present Medications Home Medications: Ambulatory Orders Medication Instructions Recorded Confirmed Cbd Oil ORAL DAILY 12/18/16 Naproxen [Naprosyn] 500 mg PO BID PRN #20 tablet 12/18/16 Ondansetron Odt [Zofran] 4 mg TL Q6H PRN #15 tablet 12/18/16 Omeprazole [PriLOSEC] 20 mg PO DAILY #14 capsule 02/11/17 Tamsulosin [Flomax] 0.4 mg PO DAILY #14 capsule 02/11/17 - Allergies Allergies/Adverse Reactions: Allergies Allergy/AdvReac Type Severity Reaction Status Date / Time No Known Drug Allergies Allergy Verified 02/11/17 10:12 - Social History Does the pt smoke?: No Smoking Status: Never smoker Does the pt drink ETOH?: No Does the pt have substance abuse?: No - Immunizations Immunizations are current?: Yes - POLST Patient has POLST: No PD ED PE NORMAL - Vitals Vital signs reviewed: Yes (Hypertensive) - General General: Alert and oriented X 3, Well developed/nourished, Other (The patient is moaning in pain and appears quite uncomfortable.) - HEENT HEENT: Atraumatic, PERRL - Neck Neck: Supple, no meningeal sign - Cardiac Cardiac: RRR, No murmur - Respiratory Respiratory: No respiratory distress, Clear bilaterally - Abdomen Abdomen: Soft, Non tender, Non distended - Back Back: No CVA TTP, No spinal TTP - Derm Derm: Normal color, Warm and dry, No rash - Extremities Extremities: No deformity, No edema - Neuro Neuro: No motor deficit, No sensory deficit Eye Opening: Spontaneous Motor: Obeys Commands Verbal: Oriented GCS Score: 15 - Psych Psych: Normal mood, Normal affect Results - Vitals Vitals: Vital Signs - 24 hr 02/22/17 02/22/17 11:22 13:41 Temperature 36.1 C L 36.4 C L Heart Rate 81 80 Respiratory 17 16 Rate Blood Pressure 149/100 H 131/83 H O2 Saturation 100 100 Oxygen O2 Source Room air - Labs Labs: Laboratory Tests 02/22/17 02/22/17 11:30 11:30 WBC 7.5 RBC 5.00 Hgb 15.5 Hct 46.3 MCV 92.6 MCH 31.0 MCHC 33.5 RDW 12.3 Plt Count 311 MPV 8.3 Neut # 5.4 Lymph # 1.2 L [place] # 0.6 Eos # 0.1 Baso # 0.3 H Absolute Nucleated RBC 0.01 Nucleated RBC % 0.1 Sodium 136 Potassium 4.3 Chloride 102 Carbon Dioxide 25 Anion Gap 9.0 BUN 13 Creatinine 1.3 H Estimated GFR (MDRD) 61 L Glucose 100 Calcium 9.5 Total Bilirubin 1.3 H AST 23 ALT 16 Alkaline Phosphatase 48 Total Protein 8.0 Albumin 4.8 Globulin 3.2 Albumin/Globulin Ratio 1.5 Lipase 18 L - Rads (name of study) 1 view abdomen Radiology: Prelim report reviewed (Impression: 1. Probable distal migration of a left ureteral calculus to the distal left ureter near the expected position of the left UVJ compared to 12/18/2016.), EMP read indepedently, See rad report Procedures - Bedside sono Bedside sono by EMP: With use of bedside ultrasound there is obvious hydronephrosis in the left kidney. The kidney is sonographically nontender. PD MEDICAL DECISION MAKING - ED course Complexity details: reviewed old records, reviewed results, re-evaluated patient , considered differential, d/w patient, d/w family ED course: 41-year-old male trying to pass a kidney stone has had a lot of episodes of pain and today adi blood and severe pain. He is improved with a liter of saline and some Toradol. His stone is bright enough that it shows up on a plain film and a single view of his abdomen was obtained showing the stone at the left ureterovesicular junction. I reassured the patient and his that the stone should pass spontaneously within the next 2 days and I have recommended that he hydrate excessively and continue the tamulosin. He has been referred to urology previously he will not need this if his symptoms resolve as expected. Departure - Departure Disposition: 01 Home, Self Care Clinical Impression: Renal colic Instructions: ED Stone Renal W Colic Follow-Up: Mabel Dodge DO [Primary Care Provider] - Comments: Today it looks the like your stone on the left side has almost passed. We expect this to pass within the next 2 days and your symptoms should resolve completely. If you have complete resolution of your symptoms and no return of symptoms you will not need follow-up with the urologist. Discharge Date/Time: 02/22/17 13:43
--- NOTE | 2017-02-22 13:09 | XRAY Report ---
EXAM: ABDOMEN RADIOGRAPHY EXAM DATE: 02/22/2017 12:51 PM. CLINICAL HISTORY: Left stone progress. COMPARISON: 12/18/2016. 12/06/2016. TECHNIQUE: 1 view. FINDINGS: Bowel Gas Pattern: Bowel gas pattern is normal. Small to moderate volume of stool in the colon. No po rtal venous gas or pneumatosis. Other: Lung bases are clear. Calcification is seen in the left pelvis measuring approximately 4 mm suggesting the calculus seen in the more proximal left ureter and seen on the study from 12/18/2016 CT with interval distal migratio n. Calculus seen at the level of approximately L3 on the study from 12/18/2016 is not definitively se en in this location on today's study. No acute osseous abnormalities. IMPRESSION: 1. Probable distal migration of left ureteral calculus to the distal left ureter near the expected po sition of the left UVJ compared to 12/18/2016. [facility] Referring Provider Line: [phone] SITE ID: [id number]
[2017-02-22] MEDS ORDERED: SODIUM CHLORIDE 0.9% 1,000 ML IV ONE (13:19)
[2017-02-22 13:42] VITALS: BP 131/83
== END 2017-02-22 13:43 | disposition home or self-care (01) ==
LOC: ED 11:13
DX: N13.2 Hydronephrosis with renal and ureteral calculous obstruction (principal)
CPT/HCPCS: 36415; 74018; 80053; 83690; 85025; 96360; 96374; 96375; 99283; 99284

== ENCOUNTER 2017-06-07 19:03 | Emergency (ER) | payer SELFPAY ==
[2017-06-07 19:08] VITALS: BP 136/74
[2017-06-07] MEDS ORDERED: BUPIVACAINE 0.5% PF 30 ML VIAL SUBQ STA (19:29)
--- NOTE | 2017-06-07 19:30 | ED Physician Documentation ---
PD HPI UPPER EXT INJURY - Stated complaint Stated Complaint: LEFT THUMB LAC - Chief complaint Chief Complaint: Laceration - History obtained from History obtained from: Patient - History of Present Illness Location: Other (Right-handed gentleman who is up-to-date on tetanus was cutting a rotten piece of wood with a band saw just prior to arrival, it jerked at him and he cut his left thumb he thinks down to the bone. No other injuries. ) Review of Systems Constitutional: reports: Reviewed and negative Cardiac: reports: Reviewed and negative Respiratory: reports: Reviewed and negative PD PAST MEDICAL HISTORY - Past Medical History Cardiovascular: None Respiratory: None Neuro: None, Other Endocrine/Autoimmune: None GI: None : Kidney stones HEENT: None Psych: None Musculoskeletal: Chronic back pain Derm: None - Past Surgical History Past Surgical History: No - Present Medications Home Medications: Ambulatory Orders Medication Instructions Recorded Confirmed Cbd Oil ORAL DAILY 12/18/16 Naproxen [Naprosyn] 500 mg PO BID PRN #20 tablet 12/18/16 Ondansetron Odt [Zofran] 4 mg TL Q6H PRN #15 tablet 12/18/16 Omeprazole [PriLOSEC] 20 mg PO DAILY #14 capsule 02/11/17 Tamsulosin [Flomax] 0.4 mg PO DAILY #14 capsule 02/11/17 HYDROcod/ACETAM 5/325 [[place] 5/325] 1 - 2 ea PO Q6H PRN #7 tablet 06/07/17 - Allergies Allergies/Adverse Reactions: Allergies Allergy/AdvReac Type Severity Reaction Status Date / Time No Known Drug Allergies Allergy Verified 02/11/17 10:12 - Social History Does the pt smoke?: No Smoking Status: Never smoker Does the pt drink ETOH?: No Does the pt have substance abuse?: No - Immunizations Immunizations are current?: Yes - POLST Patient has POLST: No PD ED PE NORMAL - Vitals Vital signs reviewed: Yes - General General: Alert and oriented X 3, No acute distress - Extremities Extremities: Other (On the left thumb at the level of the interphalangeal joint on the palmar surface there is a 1 cm laceration that is very tender with limited range of motion normal sensation on both sides of the tip. I am unable to check tendon function during initial evaluation due to pain and will be checked after local anesthetic.) - Neuro Neuro: Alert and oriented X 3, Normal speech Results - Vitals Vitals: Vital Signs - 24 hr 06/07/17 19:05 Temperature 36.6 C Heart Rate 90 Respiratory 20 Rate Blood Pressure 136/74 H O2 Saturation 98 Oxygen O2 Source Room air - Rads (name of study) L thumb XR Radiology: EMP read contemporaneously (no frx) Procedures - Laceration (location) L thumb Length in cm: 1 Wound type: Linear Neurovascular status: Sensory intact, Motor intact Tendon involvement: Tendon intact. No: Tendon Injury Anesthesia: Lidocaine 1% Wound Preparation: Betadine, Hibiclens, Irrigated copiously NS Skin layer closure: Nylon, Interrupted, Size #-0 - enter number (4-0), Sutures - enter # (3) Other: Tetanus UTD Complexity: Simple Departure - Departure Disposition: 01 Home, Self Care Clinical Impression: Laceration Condition: Good Record reviewed to determine appropriate education?: Yes Instructions: ED Laceration Hand Prescriptions: HYDROcod/ACETAM 5/325 [[place] 5/325] 1 - 2 ea PO Q6H PRN #7 tablet PRN Reason: Pain Comments: Come back for any signs of infection which would include: Redness, swelling, drainage, increased pain, or fevers. Follow-up with your physician in about 14 days for suture removal. Your blood pressure was elevated today on check into the emergency department. This does not mean that you have hypertension, it is a common phenomenon to come to the emergency department and have elevated blood pressure. I recommend that you see your primary care physician within the week to have it rechecked when you are feeling better. Discharge Date/Time: 06/07/17 20:47
[2017-06-07] MEDS ORDERED: BUFFERED LIDOCAINE 10 ML SYRINGE ONE (19:41)
--- NOTE | 2017-06-07 20:03 | XRAY Preliminary Report ---
Exam: XR FINGER(S) LT IMPRESSION: Soft tissue swelling. [facility] SITE ID: [id number]
--- NOTE | 2017-06-07 20:03 | XRAY Report ---
EXAM: LEFT FIRST DIGIT RADIOGRAPHY EXAM DATE: 06/07/2017 07:57 PM. CLINICAL HISTORY: Trauma, pain. COMPARISON: None. TECHNIQUE: 3 views. FINDINGS: Bones: Normal. No fracture or bone lesion. Joints: Normal. No subluxations. Soft Tissues: Soft tissue swelling. No foreign body. IMPRESSION: Soft tissue swelling. [facility] Referring Provider Line: [phone] SITE ID: [id number]
[2017-06-07] MEDS ORDERED: HYDROcod/ACET 5/325 Prepack 4 PO STA (20:15)
== END 2017-06-07 20:47 | disposition home or self-care (01) ==
LOC: ED 19:03
DX: S61.012A Laceration without foreign body of left thumb without damage to nail, initial encounter (principal); W31.2XXA Contact with powered woodworking and forming machines, initial encounter; R03.0 Elevated blood-pressure reading, without diagnosis of hypertension
CPT/HCPCS: 12001; 73140; 99283

== ENCOUNTER → 2017-09-04 | Outpatient (CLI) | payer MEDICAID ==
[2017-09-04 18:56] LABS: BASOPHILS % (AUTO) 0.7 %; EOSINOPHILS # (AUTO) 0.2 10^3/uL (0.0-0.7); EOSINOPHILS % (AUTO) 3.8 %; HGB - HEMOGLOBIN 14.4 g/dL (14.0-18.0); LYMPHOCYTES # (AUTO) 1.6 10^3/uL (1.5-3.5); LYMPHOCYTES % (AUTO) 25.3 %; MEAN CORPUSCULAR HEMOGLOBIN 31.5 pg (27.0-31.0); MEAN CORPUSCULAR HGB CONC 33.7 g/dL (32.0-36.0); MEAN CORPUSCULAR VOLUME 93.3 fL (80.0-94.0); MEAN PLATELET VOLUME 8.5 fL (7.4-11.4); MONOCYTES # (AUTO) 0.5 10^3/uL (0.0-1.0); MONOCYTES % (AUTO) 7.3 %; NEUTROPHILS # (AUTO) 4.1 10^3/uL (1.5-6.6); NEUTROPHILS % (AUTO) 62.9 %; PLT - PLATELET COUNT 271 10^3/uL (130-450); RED BLOOD COUNT 4.57 10^6/uL (4.70-6.10); RED CELL DISTRIBUTION WIDTH 12.6 % (12.0-15.0); WHITE BLOOD COUNT 6.5 x10^3/uL (4.8-10.8)
[2017-09-04 19:39] LABS: ALBUMIN 4.1 g/dL (3.2-5.5); ALBUMIN/GLOBULIN RATIO 1.3 (1.0-2.2); ALKALINE PHOSPHATASE 40 IU/L (42-121); ALT ALANINE AMINOTRANSFERASE 19 IU/L (10-60); AST ASPARTATE AMINOTRANSFERASE 20 IU/L (10-42); BILIRUBIN,TOTAL 0.8 mg/dL (0.2-1.0); BUN - BLOOD UREA NITROGEN 12 mg/dL (6-20); CALCIUM 9.3 mg/dL (8.5-10.3); CARBON DIOXIDE - CO2 30 mmol/L (21-32); CHLORIDE 101 mmol/L (101-111); CREATININE 0.9 mg/dL (0.6-1.2); GFR - MDRD 94 (>89); GLUCOSE 66 mg/dL (70-100); SODIUM 137 mmol/L (135-145); TOTAL PROTEIN 7.3 g/dL (6.7-8.2)
[2017-09-05 12:51] LABS: HEPATITIS C ANTIBODY NON-REACTIVE (NON-REACTIVE)
[2017-09-05 13:05] LABS: HIV AG/AB 4TH GEN NON-REACTIVE (NON-REACTIVE)
== END ==
LOC: LAB.WCP 08:00
PROVIDERS: ATTEND Family Medicine
DX: R63.4 Abnormal weight loss (principal); F19.21 Other psychoactive substance dependence, in remission
CPT/HCPCS: 36415; 80053; 84443; 85025; 86803; 87389

== ENCOUNTER 2017-10-27 11:18 | Day surgery (SDC) | payer MEDICAID ==
[~2017-10-27 11:18] MED LIST: LIDO GARGLE 30 ML BOTTLE ONE
--- NOTE | 2017-10-27 12:07 | ANESTHESIA ---
Pre-Anesthesia VS, & Labs - Diagnosis Weight loss, nausea - Procedure EGD/colonscopy Vital Signs: Temp Pulse Resp BP Pulse Ox 36.7 C 69 18 122/93 H 99 10/27/17 11:32 10/27/17 11:32 10/27/17 11:32 10/27/17 11:32 10/27/17 11:32 Height 6 ft 1.5 in Weight (kg) 61 kg Body Mass Index 18.2 - NPO >8 hours Last Fluid Intake: Sprite 4oz at 0800 - Lab Results Lab results reviewed: No Home Medications and Allergies Home Medications: Ambulatory Orders Medication Instructions Recorded Confirmed Cbd Oil ORAL DAILY 12/18/16 Omeprazole [PriLOSEC] 20 mg PO DAILY #14 capsule 02/11/17 10/26/17 Cbd Oil ORAL DAILY 12/18/16 Allergies/Adverse Reactions: Allergies Allergy/AdvReac Type Severity Reaction Status Date / Time No Known Drug Allergies Allergy Verified 02/11/17 10:12 Anes History & Medical History - Anesthetic History Anesthesia Complications: reports: No previous complications Family history of Anesthesia Complications: Denies Family history of Malignant Hyperthermia: Denies - Medical History Cardiovascular: reports: None Pulmonary: reports: None Gastrointestinal: reports: GERD, Ulcers, Other Urinary: reports: Kidney stones Neuro: reports: None Musculoskeletal: reports: Chronic back pain Endocrine/Autoimmune: reports: None Blood Disorders: reports: None Skin: reports: None Smoking Status: Former smoker Psychosocial: reports: Anxiety, Cannabis Exam General: Alert Dental: Poor dentition Mouth Opening: Greater than 4 Fingerbreadths Neck Mobility: Normal Mallampati classification: I Thyromental Distance: greater than 6 cm Respiratory: Lungs clear Cardiovascular: Regular rate Mental/Cognitive Status: Alert/Oriented X3 Cognitive Status: Other (describe below) (Very anxious) Plan Anesthesia Type: General, IV Regional Consent for Procedure(s) Verified and Reviewed: Yes Code Status: Attempt Resuscitation ASA classification: 2-Mild systemic disease Is this case an emergency?: No
[2017-10-27] MEDS ORDERED: LACTATED RINGERS 1,000 ML IV ONE ×2 (12:24→13:42)
--- NOTE | 2017-10-27 12:51 | HISTORY & PHYSICAL EXAMINATION ---
HPI - History of Present Illness HPI Comment/Other: Mr. Yoo Is here in consultation for abdominal pain, persistent nausea and weight loss. He states that he has lost about 30 pounds in the last 6 months without intending to do so. He has complete loss of appetite and tries to eat but just does not feel hungry. He also has persistent nausea which prevents him from eating. He denies any vomiting. He denies any dark stools or blood in his stools, however, he states that for the past 6 months he has had intermittent constipation and diarrhea. He denies any family history of colon cancer esophageal cancer or stomach cancer. He has chronic back pain and uses marijuana multiple times per day to treat his back pain. He has a history of opioid and methamphetamine abuse and does not want to take any narcotics to treat his back pain. For this reason he consumes marijuana throughout the day.He states that he was only using CBD pills in the past, however, approximately 6 months ago (when all of his symptoms started) he reintroduced THC into his daily use. He is taking omeprazole once daily as pres cribed by Dr. Dodge and has been doing so for about a week without any changes in his symptoms. Past Medical History: Reviewed history and no changes required: Anxiety (ICD-300.00) (LBD47-K95.9) Loss of weight (ICD-783.21) (QJO13-S19.4) Early satiety (ICD-780.94) (IOS77-E49.81) Hx of substance abuse (ICD-305.90) (CEG02-B86.21) GERD (ICD-530.81) (GCT28-T35.9) Past Surgical History: Reviewed history from 02/16/2012 and no changes required: none Family History Summary: Reviewed history and no changes required: 09/18/2017 Father (biol.) - Has a father who is alive and well - Entered On: 10/22/2013 General Comments - FH: Parents alive, healthy 2 children 1 brother - healthy Social History: Reviewed history from 02/16/2012 and no changes required: Patient has never smoked. Alcohol Use - no Risk Factors: Smoked Tobacco Use: Former smoker Cigarettes: Yes Year quit: 2006 Years Since Last Quit: 12 Previous Alcohol Use: Signed On - 09/04/2017 Alcohol use: no Seatbelt use: 100 % Sun Exposure: frequently Review of Systems General Complains of weight loss. Denies fever. GI Complains of abdominal pain, nausea, diarrhea, constipation and change in bowel habits. Denies vomiting. CV Denies palpitations. Resp Complains of shortness of breath and pleuritic chest pain. Psych Complains of anxiety. Heme Denies bleeding. Problems were reviewed with the patient during this visit. Medications were reviewed with the patient during this visit. Allergies were reviewed with the patient during this visit. No known allergies. Physical Exam General: Tall and thin Lungs: clear bilaterally to A & P Heart: regular rate and rhythm, S1, S2 without murmurs, rubs, gallops, or clicks Abdomen: bowel sounds positive; abdomen soft and non-tender without masses, organomegaly, or hernias noted Pulses: pulses normal in all 4 extremities Extremities: no clubbing, cyanosis, edema, or deformity noted with normal full range of motion of all joints Psych: anxious. Impression & Recommendations: Problem # 1: weight loss, nausea, change in bowel habits I would like to proceed with both EGD and colonoscopy for his above complaints. High on the differential is canabinoid hyperemesis due to his large intake of cannabis daily. I did discuss this with him but also indicated that we must rule out other etiologies of his complaints with the EGD and colonoscopy. The procedures were explained to the patient in detail including potential risks involved including but not limited to bleeding and perforation. The patient was provided instructions for colon prep. PMH/PSH - Past Medical History Cardiovascular: positive: None Respiratory: positive: None Neuro: positive: None Endocrine/Autoimmune: positive: None GI: positive: GERD, Ulcers, Other : positive: Kidney stones HEENT: positive: None Psych: positive: None Musculoskeletal: positive: Chronic back pain Derm: positive: None MRSA Hx?: No Social & Family Hx - Social History Does the pt smoke?: No Smoking Status: Former smoker Does the pt drink ETOH?: No Does the pt have substance abuse?: No Substance Use and Type: Marijuana - POLST Patient has POLST: No Meds/Allgy - Home Medications Home Medications: Ambulatory Orders Medication Instructions Recorded Confirmed Cbd Oil ORAL DAILY 12/18/16 Omeprazole [PriLOSEC] 20 mg PO DAILY #14 capsule 02/11/17 10/26/17 - Allergies Allergies/Adverse Reactions: Allergies Allergy/AdvReac Type Severity Reaction Status Date / Time No Known Drug Allergies Allergy Verified 02/11/17 10:12 Exam - Vital Signs Vital Signs: Vital Signs x48h Temp Pulse Resp BP Pulse Ox 10/27/17 11:32 36.7 C 69 18 122/93 H 99
[2017-10-27] MEDS ORDERED: ROCURONIUM 50 MG/5 ML VIAL IVP ONE (13:50)
[2017-10-27] MEDS ORDERED: SUCCINYLCHOLINE 200 MG/10 ML VIAL IVP ONE (13:50)
[2017-10-27] MEDS ORDERED: ONDANSETRON 4 MG/2 ML VIAL IVP ONE (13:50)
[2017-10-27] MEDS ORDERED: KETAMINE 500 MG/10 ML VIAL IVP ONE (13:50)
[2017-10-27] MEDS ORDERED: DEXAMETHASONE 4 MG/ML VIAL IVP ONE (13:50)
[2017-10-27] MEDS ORDERED: MIDAZOLAM 2 MG/2 ML VIAL IVP ONE (13:50)
[2017-10-27] MEDS ORDERED: NEOSTIGMINE 1 MG/1 ML 10 ML MDV IVP ONE (13:50)
[2017-10-27] MEDS ORDERED: LIDOCAINE-MPF 2% 5 ML VIAL IM ONE (13:50)
[2017-10-27] MEDS ORDERED: PROPOFOL 200 MG/20 ML VIAL IVP ONE (13:50)
[2017-10-27] MEDS ORDERED: GLYCOPYRROLATE 1 MG/5 ML VIAL IVP ONE (13:50)
[2017-10-27] MEDS ORDERED: ALBUTEROL NEB 2.5 MG/3 ML INH ONE (14:11)
[2017-10-27] MEDS ORDERED: IPRATROPIUM/ALBUTEROL 3 ML NEB INH ONE (15:05)
[2017-10-27 15:48] VITALS: BP 138/85
== END 2017-10-27 11:19 | disposition home or self-care (01) ==
LOC: SDS 11:18
PROVIDERS: ATTEND Surgery
PROC: 0DBN8ZX Excision of Sigmoid Colon, Via Natural or Artificial Opening Endoscopic, Diagnostic (ICD-10-PCS; 2017-10-27)
PROC: 0DBP8ZX Excision of Rectum, Via Natural or Artificial Opening Endoscopic, Diagnostic (ICD-10-PCS; 2017-10-27)
PROC: 0DBM8ZX Excision of Descending Colon, Via Natural or Artificial Opening Endoscopic, Diagnostic (ICD-10-PCS; 2017-10-27)
PROC: 0DB98ZX Excision of Duodenum, Via Natural or Artificial Opening Endoscopic, Diagnostic (ICD-10-PCS; 2017-10-27)
PROC: 0DB68ZX Excision of Stomach, Via Natural or Artificial Opening Endoscopic, Diagnostic (ICD-10-PCS; 2017-10-27)
PROC: 0DB58ZX Excision of Esophagus, Via Natural or Artificial Opening Endoscopic, Diagnostic (ICD-10-PCS; 2017-10-27)
PROC: 0DBH8ZX Excision of Cecum, Via Natural or Artificial Opening Endoscopic, Diagnostic (ICD-10-PCS; principal; 2017-10-27 12:15)
PROC: 0DBL8ZX Excision of Transverse Colon, Via Natural or Artificial Opening Endoscopic, Diagnostic (ICD-10-PCS; 2017-10-27 12:15)
DX: R11.2 Nausea with vomiting, unspecified (principal); R63.4 Abnormal weight loss; R19.4 Change in bowel habit; K64.8 Other hemorrhoids; M54.9 Dorsalgia, unspecified; K21.9 Gastro-esophageal reflux disease without esophagitis; Z87.891 Personal history of nicotine dependence
CPT/HCPCS: 43239; 45380; A9270; J0330; J7120

== ENCOUNTER 2019-02-12 09:22 | Emergency (ER) | payer MEDICAID ==
--- NOTE | 2019-02-12 09:52 | ED Physician Documentation ---
PD HPI HEENT - Stated complaint Stated Complaint: TOOTH PX - Chief complaint Chief Complaint: Heent - History obtained from History obtained from: Patient - History of Present Illness Timing - onset: How many days ago (4) Timing - duration: Days (4) Timing - details: Gradual onset, Still present Location: Sinuses (having feeling of pressure in left maxillary sinus as well.), Tooth (left upper tooth pain, sensitive to air, temp, pressure) Improves: No: Medication (ibuprofen) Worsens: Temperatures, Other (chewing) Associated symptoms: No: Fever, Congestion, Facial swelling (but left facial pain), Headache, Cough Similar symptoms before: Has not had sx before Review of Systems Constitutional: denies: Fever, Chills, Myalgias Nose: reports: Sinus pressure / pain (left maxillary). denies: Rhinorrhea / runny nose, Congestion Throat: reports: Dental pain / toothache. denies: Sore throat Respiratory: denies: Cough GI: denies: Nausea, Vomiting, Diarrhea Skin: denies: Rash PD PAST MEDICAL HISTORY - Past Medical History Cardiovascular: None Respiratory: None Neuro: None Endocrine/Autoimmune: None GI: GERD, Ulcers, Other : Kidney stones HEENT: None Psych: None Musculoskeletal: Chronic back pain Derm: None - Past Surgical History Past Surgical History: No - Present Medications Home Medications: Ambulatory Orders Medication Instructions Recorded Confirmed Cbd Oil ORAL DAILY 12/18/16 Omeprazole [PriLOSEC] 20 mg PO DAILY #14 capsule 02/11/17 10/26/17 Clindamycin HCl [Clindamycin 300MG 300 mg PO Q6H #28 capsule 02/12/19 CAP] dexAMETHasone [Decadron] 4 mg PO DAILY #5 tablet 02/12/19 - Allergies Allergies/Adverse Reactions: Allergies Allergy/AdvReac Type Severity Reaction Status Date / Time No Known Drug Allergies Allergy Verified 02/12/19 09:31 - Social History Does the pt smoke?: No Smoking Status: Former smoker Does the pt drink ETOH?: No Does the pt have substance abuse?: Yes Substance Use and Type: Marijuana - Immunizations Immunizations are current?: Yes - POLST Patient has POLST: No PD ED PE NORMAL - Vitals Vital signs reviewed: Yes - General General: Alert and oriented X 3, No acute distress, Well developed/nourished - HEENT HEENT: Ears normal, Moist mucous membranes, Pharynx benign, Other (left maxillary tender to percussion). No: Dentition benign (half tooth decayed left upper first molar, and other molars have been extracted. ) - Neck Neck: Supple, no meningeal sign, No adenopathy - Cardiac Cardiac: RRR, No murmur - Respiratory Respiratory: Clear bilaterally - Derm Derm: Normal color, Warm and dry, No rash Results - Vitals Vitals: Vital Signs - 24 hr 02/12/19 02/12/19 09:31 10:40 Temperature 36.7 C Heart Rate 86 65 Respiratory 20 18 Rate Blood Pressure 129/70 140/88 H O2 Saturation 100 99 Oxygen O2 Source Room air PD MEDICAL DECISION MAKING - ED course Complexity details: considered differential (sounds like sinus infection/pressure, which could be extended from tooth root, or just separate. ), d/w patient Departure - Departure Disposition: 01 Home, Self Care Clinical Impression: Pain due to dental caries Acute sinus infection Qualifiers: Sinusitis location: maxillary Recurrence: non-recurrent Qualified Code(s): J01.00 - Acute maxillary sinusitis, unspecified Condition: Stable Record reviewed to determine appropriate education?: Yes Instructions: ED Tooth Pain Follow-Up: Mabel Dodge DO [Primary Care Provider] - Prescriptions: Clindamycin HCl [Clindamycin 300MG CAP] 300 mg PO Q6H #28 capsule dexAMETHasone [Decadron] 4 mg PO DAILY #5 tablet Comments: Continue with some ibuprofen 600 mg 3 times a day with food. To that add Tylenol 650 mg 4 times a day. Decadron steroid anti-inflammatory can help as well and also take this with food. Clindamycin antibiotic as directed for a week. Follow-up with the dentist at their available appointment. Return if not improved well over the next few days and return sooner if worsening. You do have the dental pain. And sounds like it extended into the sinus area with infection there. The above treatment should help for the infection of the tooth base as well as any extension into the sinuses. Discharge Date/Time: 02/12/19 10:40
[2019-02-12] MEDS ORDERED: CLINDAMYCIN 150 MG CAPSULE PO STA (10:05)
[2019-02-12] MEDS ORDERED: ACETAMINOPHEN 325 MG TABLET PO STA (10:05)
[2019-02-12] MEDS ORDERED: DEXAMETHASONE 10 MG/ML VIAL PO STA (10:05)
[2019-02-12] MEDS ORDERED: KETOROLAC 30 MG/ML VIAL IM STA (10:05)
[2019-02-12] MEDS ORDERED: ONDANSETRON ODT 4 MG TABLET TL STA (10:05)
[2019-02-12] MEDS ORDERED: CHERRY SYRUP 10 ML UDC PO ONE (10:05)
[2019-02-12 10:41] VITALS: BP 140/88
== END 2019-02-12 10:40 | disposition home or self-care (01) ==
LOC: ED 09:22
DX: K02.9 Dental caries, unspecified (principal); J01.00 Acute maxillary sinusitis, unspecified; Z87.891 Personal history of nicotine dependence
CPT/HCPCS: 96372; 99283; 99284; A9270; Q0162

== ENCOUNTER 2021-06-11 09:01 | Outpatient (CLI) | payer MEDICAID ==
--- NOTE | 2021-06-11 13:16 | Ultrasound Report ---
PROCEDURE: Chest INDICATIONS: SOFT TISSUE MASS TECHNIQUE: Real-time scanning was performed of the left shoulder/neck by the mulcher operator. COMPARISON: None. FINDINGS: A 2.9 x 2.6 x 1.3 cm mass is seen in the area of clinical concern, which exhibits heterogeneous echog enicity and no appreciable vascularity. IMPRESSION: 1. 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 Differential considerations include a neurogenic tumor or pilomatricoma. Reviewed by: Myles Morocho MD on 06/11/2021 1:15 PM PDT Approved by: Myles Morocho MD on 06/11/2021 1:15 PM PDT Station ID: [id number]
== END 2021-06-11 09:02 | disposition home or self-care (01) ==
LOC: DI 09:01
PROVIDERS: ATTEND Physician Assistant
DX: M79.9 Soft tissue disorder, unspecified (principal)

== ENCOUNTER 2021-07-06 19:19 | Emergency (ER) | payer MEDICAID ==
[2021-07-06] MEDS ORDERED: cephALEXin 250 MG CAPSULE PO STA (19:38)
--- NOTE | 2021-07-06 19:38 | ED Physician Documentation ---
History of Present Illness - Stated complaint Stated Complaint: NECK LUMP/SOA - Additonal information Additional information: 45-year-old male comes in the emergency department for evaluation of an inflamed cyst on his left shoulder. This has been growing in size over the last 5 to 6 months. He had an ultrasound of it on 11 June. Diagnosis is favored to represent an epidermal inclusion cyst versus a neurogenic tumor. Patient is scheduled to follow-up with a provider on 16 July for further evaluation and to determine course of treatment. Over the last 24 hours the cyst has become increasingly painful and is now mildly erythematous. He has no fevers. He does have a history of chronic back and shoulder pain which is also flared at this time. He is hypersensitive to touch in this area. PD PAST MEDICAL HISTORY - Past Medical History Past Medical History: Yes Cardiovascular: None Respiratory: None Neuro: None Endocrine/Autoimmune: None GI: GERD, Ulcers, Other : Kidney stones HEENT: None Psych: None Musculoskeletal: Chronic back pain Derm: None - Past Surgical History Past Surgical History: No - Present Medications Home Medications: Ambulatory Orders Medication Instructions Recorded Confirmed Omeprazole [PriLOSEC] 20 mg PO DAILY #14 capsule 02/11/17 07/06/21 cephALEXin [Keflex] 500 mg PO Q6H #28 cap 07/06/21 - Allergies Allergies/Adverse Reactions: Allergies Allergy/AdvReac Type Severity Reaction Status Date / Time No Known Drug Allergies Allergy Verified 07/06/21 19:26 - Social History Does the pt smoke?: No Smoking Status: Never smoker Does the pt drink ETOH?: No Does the pt have substance abuse?: Yes - Immunizations Immunizations are current?: Yes - POLST Patient has POLST: No PD ED PE EXPANDED - General General: Alert, Anxious (animated) - Derm Derm: Other (3x3 cm cyst left shoulder. Tender to touch, mildly erythematous) Results - Vitals Vitals: Vital Signs - 24 hr 07/06/21 19:21 Temperature 36.4 C L Heart Rate 82 Respiratory 18 Rate Blood Pressure 146/81 H O2 Saturation 100 Oxygen O2 Source Room air PD MEDICAL DECISION MAKING - ED course Complexity details: considered differential, d/w patient, d/w family ED course: 45-year-old male presents emergency department for evaluation of increased pain and redness to a known cyst on his left shoulder. Over the last 48 hours it has developed some erythema which he states is new. He is scheduled to see a provider in follow-up for longer-term management of the cyst on 16 July. 9 patient is hypersensitive to touch and evaluation of the cyst. He will be started on cephalexin. Discussed that sometimes incision and drainage may become necessary but patient would prefer to avoid that today unless antibiotics fail to improve symptoms. Departure - Departure Disposition: 01 Home, Self Care Clinical Impression: Infected cyst of skin Condition: Stable Record reviewed to determine appropriate education?: Yes Prescriptions: cephALEXin [Keflex] 500 mg PO Q6H #28 cap Comments: Robert núñez are seen today in the emergency department because the cyst on your left shoulder has become erythematous and more tender over the last few days. I do suspect that you are developing a superficial infection at this time. I would like you to fill the prescription for the antibiotic that was sent to [facility] and begin taking as directed. You can continue to take your usual pain medications. If despite the antibiotics you have increased pain, redness or increased size of the cyst then please return to the ER. Please do not miss follow-up with the provider that you are scheduled to see on 16 July for further evaluation and management of the cyst.
[2021-07-06 19:48] VITALS: BP 144/79
== END 2021-07-06 19:48 | disposition home or self-care (01) ==
LOC: ED 19:19
DX: L72.9 Follicular cyst of the skin and subcutaneous tissue, unspecified (principal)
CPT/HCPCS: 99281; 99282; A9270